=== PATIENT | male | born 1950 | race Caucasian/White ===

== ENCOUNTER 2020-04-26 13:13 | Inpatient (IN) | payer OTHER, SELFPAY ==
[~2020-04-26] VITALS: Ht 162.6 cm; Wt 78.5 kg
[2020-04-26 13:15] VITALS: Ht 162.6 cm; Wt 78.5 kg
[2020-04-26 14:38] LABS: PLATELET COUNT 220 x10^3mcL (130-400); RED CELL DISTRIBUTION WIDTH 13.8 % (11.5-14.5)
[2020-04-26 14:47] LABS: CALCIUM 8.7 mg/dL (8.5-10.1); CARBON DIOXIDE 21.3 mmol/L (21-32); CHLORIDE SERUM 101 mmol/L (98-107); CREATININE SERUM 1.1 mg/dL (0.7-1.3); GFR1 > 60 mL/min; GLUCOSE SERUM 199 mg/dL (74-106); POTASSIUM SERUM 3.7 mmol/L (3.5-5.1); SODIUM SERUM 134 mmol/L (136-145)
[2020-04-26 14:48] LABS: BASOPHIL % 0 % (0-2)
[2020-04-26 14:51] LABS: ALKALINE PHOSPHATASE 84 U/L (46-116); ALT/SGPT 74 U/L (16-63); AST/SGOT 81 U/L (15-37); BILIRUBIN TOTAL 0.52 mg/dL (0.20-1.00); LACTIC DEHYDROGENASE (LDH) 562 U/L (100-190); TOTAL PROTEIN, SERUM 7.5 g/dL (6.4-8.2)
[2020-04-26 15:00] LABS: ALBUMIN 2.8 g/dL (3.4-5.0)
[2020-04-26 15:23] LABS: C REACTIVE PROTEIN 18.4 mg/dL (<=0.9)
[2020-04-26 23:36] VITALS: BP 124/71
[2020-04-27 06:21] VITALS: BP 120/72
[2020-04-27 07:42] LABS: ALKALINE PHOSPHATASE 81 U/L (46-116); ALT/SGPT 69 U/L (16-63); AST/SGOT 70 U/L (15-37); BILIRUBIN TOTAL 0.5 mg/dL (0.20-1.00); CALCIUM 8.8 mg/dL (8.5-10.1); CARBON DIOXIDE 23.1 mmol/L (21-32); CHLORIDE SERUM 102 mmol/L (98-107); CREATININE SERUM 0.8 mg/dL (0.7-1.3); GFR1 > 60 mL/min; GLUCOSE SERUM 158 mg/dL (74-106); MAGNESIUM 2.4 mg/dL (1.8-2.4); SODIUM SERUM 136 mmol/L (136-145); TOTAL PROTEIN, SERUM 7.3 g/dL (6.4-8.2)
[2020-04-27 07:58] LABS: BASOPHIL % 0.1 % (0-2); PLATELET COUNT 253 x10^3mcL (130-400); RED CELL DISTRIBUTION WIDTH 14.1 % (11.5-14.5)
[2020-04-27 09:00] LABS: ALBUMIN 2.7 g/dL (3.4-5.0)
[2020-04-27 09:02] VITALS: BP 124/63
[2020-04-27 12:35] LABS: BILIRUBIN DIRECT 0.22 mg/dL (0.0-0.2); BILIRUBIN TOTAL 0.4 mg/dL (0.20-1.00); TOTAL PROTEIN, SERUM 7.6 g/dL (6.4-8.2)
[2020-04-27 12:40] LABS: ALBUMIN 2.8 g/dL (3.4-5.0)
[2020-04-27 13:37] VITALS: BP 121/69
[2020-04-27 17:27] VITALS: BP 117/69
[2020-04-27 22:03] VITALS: BP 134/75
[2020-04-28 05:50] VITALS: BP 122/69
[2020-04-28 07:06] VITALS: BP 136/88
[2020-04-28 07:48] LABS: ALKALINE PHOSPHATASE 93 U/L (46-116); ALT/SGPT 81 U/L (16-63); AST/SGOT 88 U/L (15-37); BILIRUBIN TOTAL 0.5 mg/dL (0.20-1.00); CALCIUM 9.1 mg/dL (8.5-10.1); CARBON DIOXIDE 22.6 mmol/L (21-32); CHLORIDE SERUM 104 mmol/L (98-107); CREATININE SERUM 0.9 mg/dL (0.7-1.3); GFR1 > 60 mL/min; GLUCOSE SERUM 135 mg/dL (74-106); MAGNESIUM 2.5 mg/dL (1.8-2.4); POTASSIUM SERUM 3.9 mmol/L (3.5-5.1); SODIUM SERUM 138 mmol/L (136-145); TOTAL PROTEIN, SERUM 7.3 g/dL (6.4-8.2)
[2020-04-28 07:54] LABS: ALBUMIN 2.7 g/dL (3.4-5.0)
[2020-04-28 08:26] LABS: BILIRUBIN DIRECT 0.22 mg/dL (0.0-0.2); BILIRUBIN TOTAL 0.53 mg/dL (0.20-1.00); TOTAL PROTEIN, SERUM 7.5 g/dL (6.4-8.2)
[2020-04-28 08:42] LABS: PLATELET COUNT 318 x10^3mcL (130-400); RED CELL DISTRIBUTION WIDTH 14.1 % (11.5-14.5)
[2020-04-28 08:46] LABS: BASOPHIL % 0 % (0-2)
[2020-04-28 09:05] LABS: ALBUMIN 2.6 g/dL (3.4-5.0)
[2020-04-28 09:12] VITALS: BP 121/68
[2020-04-28 12:29] VITALS: BP 126/68
[2020-04-28 17:27] VITALS: BP 121/62
[2020-04-28 21:21] VITALS: BP 104/54
[2020-04-29 05:49] VITALS: BP 113/71
[2020-04-29 07:41] LABS: PLATELET COUNT 324 x10^3mcL (130-400)
[2020-04-29 07:48] LABS: BASOPHIL % 0 % (0-2)
[2020-04-29 08:00] LABS: ALKALINE PHOSPHATASE 142 U/L (46-116); ALT/SGPT 70 U/L (16-63); AST/SGOT 68 U/L (15-37); BILIRUBIN TOTAL 0.7 mg/dL (0.20-1.00); CARBON DIOXIDE 24.3 mmol/L (21-32); CHLORIDE SERUM 104 mmol/L (98-107); CREATININE SERUM 0.9 mg/dL (0.7-1.3); GFR1 > 60 mL/min; GLUCOSE SERUM 131 mg/dL (74-106); MAGNESIUM 2.4 mg/dL (1.8-2.4); SODIUM SERUM 139 mmol/L (136-145); TOTAL PROTEIN, SERUM 7.3 g/dL (6.4-8.2)
[2020-04-29 08:01] LABS: ALBUMIN 2.7 g/dL (3.4-5.0)
[2020-04-29 08:51] VITALS: BP 123/68
[2020-04-29 12:37] VITALS: BP 111/69
[2020-04-29 17:11] VITALS: BP 107/22
[2020-04-29 20:18] VITALS: BP 107/58
[2020-04-30 04:45] VITALS: BP 107/57
[2020-04-30 07:55] LABS: BASOPHIL % 0.1 % (0-2); PLATELET COUNT 354 x10^3mcL (130-400); RED CELL DISTRIBUTION WIDTH 14.2 % (11.5-14.5)
[2020-04-30 08:23] LABS: ALBUMIN 2.7 g/dL (3.4-5.0); ALKALINE PHOSPHATASE 110 U/L (46-116); ALT/SGPT 58 U/L (16-63); AST/SGOT 55 U/L (15-37); BILIRUBIN TOTAL 0.8 mg/dL (0.20-1.00); CALCIUM 8.9 mg/dL (8.5-10.1); CARBON DIOXIDE 25.4 mmol/L (21-32); CHLORIDE SERUM 101 mmol/L (98-107); CREATININE SERUM 0.9 mg/dL (0.7-1.3); GFR1 > 60 mL/min; GLUCOSE SERUM 101 mg/dL (74-106); MAGNESIUM 2.5 mg/dL (1.8-2.4); POTASSIUM SERUM 4.3 mmol/L (3.5-5.1); SODIUM SERUM 139 mmol/L (136-145); TOTAL PROTEIN, SERUM 7.2 g/dL (6.4-8.2)
[2020-04-30 08:47] VITALS: BP 136/64
[2020-04-30 13:12] VITALS: BP 112/68
[2020-04-30 16:48] VITALS: BP 133/71
[2020-04-30 21:10] VITALS: BP 101/72
[2020-05-01 05:40] VITALS: BP 129/75
[2020-05-01 07:50] LABS: BASOPHIL % 0.1 % (0-2); RED CELL DISTRIBUTION WIDTH 13.6 % (11.5-14.5)
[2020-05-01 08:05] VITALS: BP 121/70
[2020-05-01 08:25] LABS: PLATELET COUNT 421 x10^3mcL (130-400)
[2020-05-01 08:27] LABS: ALKALINE PHOSPHATASE 119 U/L (46-116); ALT/SGPT 52 U/L (16-63); AST/SGOT 46 U/L (15-37); BILIRUBIN TOTAL 1.11 mg/dL (0.20-1.00); CALCIUM 9.2 mg/dL (8.5-10.1); CARBON DIOXIDE 27.3 mmol/L (21-32); CHLORIDE SERUM 102 mmol/L (98-107); GFR1 > 60 mL/min; GLUCOSE SERUM 118 mg/dL (74-106); MAGNESIUM 2.6 mg/dL (1.8-2.4); POTASSIUM SERUM 4.8 mmol/L (3.5-5.1); SODIUM SERUM 138 mmol/L (136-145); TOTAL PROTEIN, SERUM 7.4 g/dL (6.4-8.2)
[2020-05-01 08:32] LABS: ALBUMIN 2.6 g/dL (3.4-5.0)
[2020-05-01 12:26] VITALS: BP 126/57
[2020-05-01 16:42] VITALS: BP 108/58
[2020-05-01 21:05] VITALS: BP 113/53
[2020-05-02 06:21] VITALS: BP 130/82
[2020-05-02 08:32] VITALS: BP 117/68
[2020-05-02 08:55] LABS: RED CELL DISTRIBUTION WIDTH 14.3 % (12.1-16.2)
[2020-05-02 08:59] LABS: BASOPHIL % 0.3 % (0.2-1.5)
[2020-05-02 09:22] LABS: ALKALINE PHOSPHATASE 125 U/L (46-116); ALT/SGPT 47 U/L (16-63); AST/SGOT 51 U/L (15-37); BILIRUBIN TOTAL 1.04 mg/dL (0.20-1.00); CALCIUM 9.2 mg/dL (8.5-10.1); CARBON DIOXIDE 24.9 mmol/L (21-32); CHLORIDE SERUM 101 mmol/L (98-107); GFR1 > 60 mL/min; GLUCOSE SERUM 114 mg/dL (74-106); MAGNESIUM 2.6 mg/dL (1.8-2.4); POTASSIUM SERUM 4.4 mmol/L (3.5-5.1); SODIUM SERUM 137 mmol/L (136-145); TOTAL PROTEIN, SERUM 7.4 g/dL (6.4-8.2)
[2020-05-02 09:24] LABS: ALBUMIN 2.5 g/dL (3.4-5.0)
[2020-05-02 09:46] LABS: PLATELET COUNT 446 x10^3mcL (152-348)
[2020-05-02 12:37] VITALS: BP 100/55
[2020-05-02 17:23] VITALS: BP 108/48
[2020-05-02 22:08] VITALS: BP 105/51
[2020-05-03 06:27] VITALS: BP 105/60
[2020-05-03 08:02] LABS: BASOPHIL % 0.1 % (0.2-1.5); RED CELL DISTRIBUTION WIDTH 14.3 % (12.1-16.2)
[2020-05-03 08:28] LABS: ALKALINE PHOSPHATASE 116 U/L (46-116); ALT/SGPT 41 U/L (16-63); AST/SGOT 39 U/L (15-37); BILIRUBIN TOTAL 0.75 mg/dL (0.20-1.00); CALCIUM 8.8 mg/dL (8.5-10.1); CARBON DIOXIDE 26.3 mmol/L (21-32); CHLORIDE SERUM 103 mmol/L (98-107); GFR1 > 60 mL/min; GLUCOSE SERUM 115 mg/dL (74-106); MAGNESIUM 2.9 mg/dL (1.8-2.4); POTASSIUM SERUM 4.9 mmol/L (3.5-5.1); SODIUM SERUM 138 mmol/L (136-145); TOTAL PROTEIN, SERUM 7.1 g/dL (6.4-8.2)
[2020-05-03 08:59] LABS: ALBUMIN 2.3 g/dL (3.4-5.0)
[2020-05-03 09:01] VITALS: BP 116/70
[2020-05-03 09:02] LABS: PLATELET COUNT 449 x10^3mcL (152-348)
[2020-05-03 12:30] VITALS: BP 104/74
[2020-05-03 17:07] VITALS: BP 105/56
[2020-05-03 21:42] VITALS: BP 108/71
[2020-05-04 06:04] VITALS: BP 113/67
[2020-05-04 07:30] LABS: RED CELL DISTRIBUTION WIDTH 14.4 % (12.1-16.2)
[2020-05-04 08:31] LABS: PLATELET COUNT 461 x10^3mcL (152-348)
[2020-05-04 08:52] VITALS: BP 118/68
[2020-05-04 09:30] LABS: ALKALINE PHOSPHATASE 115 U/L (46-116); ALT/SGPT 38 U/L (16-63); AST/SGOT 43 U/L (15-37); BILIRUBIN TOTAL 0.62 mg/dL (0.20-1.00); CARBON DIOXIDE 23.4 mmol/L (21-32); CHLORIDE SERUM 103 mmol/L (98-107); GFR1 > 60 mL/min; GLUCOSE SERUM 100 mg/dL (74-106); MAGNESIUM 2.8 mg/dL (1.8-2.4); POTASSIUM SERUM 4.8 mmol/L (3.5-5.1); SODIUM SERUM 139 mmol/L (136-145); TOTAL PROTEIN, SERUM 7.4 g/dL (6.4-8.2)
[2020-05-04 09:47] LABS: ALBUMIN 2.3 g/dL (3.4-5.0)
[2020-05-04 12:33] VITALS: BP 108/48
[2020-05-04 16:32] VITALS: BP 120/69
[2020-05-04 17:35] LABS: ATYPICAL LYMPH 2 %; BAND NEUTROPHIL 2 % (0-10); BASOPHIL 1 % (0-2); MONOCYTE 3 % (0-7); SEGMENTED NEUTROPHILS 85 % (37-75)
[2020-05-04 17:36] LABS: PLATELET MORPHOLOGY LARGE PLATELET SEEN; rbc morphology (normal/abnorm) NORMAL (NORMAL)
[2020-05-04 23:41] VITALS: BP 103/57
[2020-05-05 05:48] VITALS: BP 110/70
[2020-05-05 08:04] LABS: BASOPHIL % 0.4 % (0.2-1.5)
[2020-05-05 08:48] LABS: PLATELET COUNT 468 x10^3mcL (152-348); RED CELL DISTRIBUTION WIDTH 14.6 % (12.1-16.2)
[2020-05-05 08:53] VITALS: BP 120/69
[2020-05-05 09:21] LABS: ALKALINE PHOSPHATASE 113 U/L (46-116); ALT/SGPT 33 U/L (16-63); AST/SGOT 47 U/L (15-37); BILIRUBIN TOTAL 0.7 mg/dL (0.20-1.00); CALCIUM 8.6 mg/dL (8.5-10.1); CHLORIDE SERUM 102 mmol/L (98-107); CREATININE SERUM 0.9 mg/dL (0.7-1.3); GFR1 > 60 mL/min; GLUCOSE SERUM 99 mg/dL (74-106); MAGNESIUM 2.5 mg/dL (1.8-2.4); POTASSIUM SERUM 4.5 mmol/L (3.5-5.1); SODIUM SERUM 136 mmol/L (136-145); TOTAL PROTEIN, SERUM 7.2 g/dL (6.4-8.2)
[2020-05-05 09:23] LABS: ALBUMIN 2.2 g/dL (3.4-5.0)
[2020-05-05 12:00] VITALS: BP 102/99
[2020-05-05 16:39] VITALS: BP 117/73
[2020-05-05 21:15] VITALS: BP 120/71
[2020-05-06 05:34] VITALS: BP 102/55
[2020-05-06 08:01] LABS: BASOPHIL % 0.2 % (0.2-1.5); RED CELL DISTRIBUTION WIDTH 14.3 % (12.1-16.2)
[2020-05-06 08:41] LABS: PLATELET COUNT 437 x10^3mcL (152-348)
[2020-05-06 09:03] LABS: ALKALINE PHOSPHATASE 109 U/L (46-116); ALT/SGPT 35 U/L (16-63); AST/SGOT 47 U/L (15-37); BILIRUBIN TOTAL 0.6 mg/dL (0.20-1.00); CALCIUM 8.8 mg/dL (8.5-10.1); CARBON DIOXIDE 26.6 mmol/L (21-32); CHLORIDE SERUM 101 mmol/L (98-107); GFR1 > 60 mL/min; GLUCOSE SERUM 104 mg/dL (74-106); MAGNESIUM 2.7 mg/dL (1.8-2.4); POTASSIUM SERUM 5.1 mmol/L (3.5-5.1); SODIUM SERUM 137 mmol/L (136-145); TOTAL PROTEIN, SERUM 7.2 g/dL (6.4-8.2)
[2020-05-06 09:05] VITALS: BP 110/70
[2020-05-06 09:19] LABS: ALBUMIN 2.2 g/dL (3.4-5.0)
[2020-05-06 14:40] VITALS: BP 118/60
[2020-05-06 21:52] VITALS: BP 103/55
[2020-05-07 05:13] VITALS: BP 113/69
[2020-05-07 07:41] LABS: BASOPHIL % 0.2 % (0.2-1.5)
[2020-05-07 08:09] LABS: ALKALINE PHOSPHATASE 107 U/L (46-116); ALT/SGPT 47 U/L (16-63); AST/SGOT 63 U/L (15-37); BILIRUBIN TOTAL 0.6 mg/dL (0.20-1.00); CALCIUM 8.5 mg/dL (8.5-10.1); CARBON DIOXIDE 25.1 mmol/L (21-32); CHLORIDE SERUM 101 mmol/L (98-107); CREATININE SERUM 0.8 mg/dL (0.7-1.3); GFR1 > 60 mL/min; GLUCOSE SERUM 95 mg/dL (74-106); POTASSIUM SERUM 4.5 mmol/L (3.5-5.1); SODIUM SERUM 137 mmol/L (136-145); TOTAL PROTEIN, SERUM 7.1 g/dL (6.4-8.2)
[2020-05-07 08:17] LABS: ALBUMIN 2.2 g/dL (3.4-5.0)
[2020-05-07 09:08] VITALS: BP 111/77
[2020-05-07 09:18] LABS: PLATELET COUNT 420 x10^3mcL (152-348); RED CELL DISTRIBUTION WIDTH 14.8 % (12.1-16.2)
[2020-05-07 11:47] VITALS: BP 113/69
[2020-05-07 15:32] VITALS: BP 120/71
[2020-05-07 20:56] VITALS: BP 117/72
[2020-05-08 06:02] VITALS: BP 106/54
[2020-05-08 08:32] VITALS: BP 106/63
[2020-05-08 08:37] LABS: BASOPHIL % 0.7 % (0.2-1.5)
[2020-05-08 08:54] LABS: PLATELET COUNT 417 x10^3mcL (152-348); RED CELL DISTRIBUTION WIDTH 14.7 % (12.1-16.2)
[2020-05-08 11:05] LABS: ALKALINE PHOSPHATASE 107 U/L (46-116); ALT/SGPT 98 U/L (16-63); AST/SGOT 109 U/L (15-37); BILIRUBIN TOTAL 0.65 mg/dL (0.20-1.00); CALCIUM 9.1 mg/dL (8.5-10.1); CARBON DIOXIDE 22.5 mmol/L (21-32); CHLORIDE SERUM 102 mmol/L (98-107); CREATININE SERUM 0.9 mg/dL (0.7-1.3); GFR1 > 60 mL/min; GLUCOSE SERUM 88 mg/dL (74-106); POTASSIUM SERUM 4.6 mmol/L (3.5-5.1); SODIUM SERUM 137 mmol/L (136-145); TOTAL PROTEIN, SERUM 7.6 g/dL (6.4-8.2)
[2020-05-08 11:08] LABS: ALBUMIN 2.2 g/dL (3.4-5.0)
[2020-05-08 15:58] VITALS: BP 115/78
[2020-05-08 20:30] VITALS: BP 125/75
[2020-05-09 04:40] VITALS: BP 113/72
[2020-05-09 08:56] LABS: ALKALINE PHOSPHATASE 107 U/L (46-116); ALT/SGPT 134 U/L (16-63); AST/SGOT 106 U/L (15-37); BILIRUBIN TOTAL 0.7 mg/dL (0.20-1.00); CALCIUM 8.6 mg/dL (8.5-10.1); CARBON DIOXIDE 25.4 mmol/L (21-32); CHLORIDE SERUM 99 mmol/L (98-107); CREATININE SERUM 0.9 mg/dL (0.7-1.3); GFR1 > 60 mL/min; GLUCOSE SERUM 96 mg/dL (74-106); POTASSIUM SERUM 4.3 mmol/L (3.5-5.1); SODIUM SERUM 135 mmol/L (136-145); TOTAL PROTEIN, SERUM 7.4 g/dL (6.4-8.2)
[2020-05-09 08:59] LABS: ALBUMIN 2.3 g/dL (3.4-5.0)
[2020-05-09 09:00] VITALS: BP 110/74
[2020-05-09 09:30] LABS: PLATELET COUNT 460 x10^3mcL (152-348); RED CELL DISTRIBUTION WIDTH 14.7 % (12.1-16.2)
[2020-05-09 12:07] LABS: BAND NEUTROPHIL 3 % (0-10); MONOCYTE 4 % (0-7); SEGMENTED NEUTROPHILS 76 % (37-75)
[2020-05-09 12:09] LABS: rbc morphology (normal/abnorm) NORMAL (NORMAL)
[2020-05-09 12:13] VITALS: BP 112/73
[2020-05-09 17:58] VITALS: BP 117/76
[2020-05-09 21:45] VITALS: BP 114/75
[2020-05-10 05:35] VITALS: BP 126/72
[2020-05-10 08:37] VITALS: BP 107/67
[2020-05-10 11:11] VITALS: BP 115/70
[2020-05-10 15:35] LABS: BASOPHIL % 0.7 % (0.2-1.5); PLATELET COUNT 364 x10^3mcL (152-348)
[2020-05-10 15:36] LABS: RED CELL DISTRIBUTION WIDTH 14.6 % (12.1-16.2)
[2020-05-10 15:54] LABS: ALKALINE PHOSPHATASE 105 U/L (46-116); ALT/SGPT 186 U/L (16-63); AST/SGOT 109 U/L (15-37); BILIRUBIN TOTAL 0.6 mg/dL (0.20-1.00); CALCIUM 8.6 mg/dL (8.5-10.1); CARBON DIOXIDE 24.5 mmol/L (21-32); CHLORIDE SERUM 101 mmol/L (98-107); CREATININE SERUM 0.8 mg/dL (0.7-1.3); GFR1 > 60 mL/min; GLUCOSE SERUM 162 mg/dL (74-106); POTASSIUM SERUM 4.8 mmol/L (3.5-5.1); SODIUM SERUM 133 mmol/L (136-145); TOTAL PROTEIN, SERUM 7.1 g/dL (6.4-8.2)
[2020-05-10 16:08] LABS: ALBUMIN 2.3 g/dL (3.4-5.0)
[2020-05-10 17:00] VITALS: BP 130/70
[2020-05-10 21:15] VITALS: BP 119/77
[2020-05-11 05:33] VITALS: BP 96/60
[2020-05-11 07:36] LABS: ALKALINE PHOSPHATASE 104 U/L (46-116); ALT/SGPT 214 U/L (16-63); AST/SGOT 115 U/L (15-37); BILIRUBIN TOTAL 0.6 mg/dL (0.20-1.00); CALCIUM 8.5 mg/dL (8.5-10.1); CHLORIDE SERUM 100 mmol/L (98-107); CREATININE SERUM 0.8 mg/dL (0.7-1.3); GFR1 > 60 mL/min; GLUCOSE SERUM 90 mg/dL (74-106); POTASSIUM SERUM 4.2 mmol/L (3.5-5.1); SODIUM SERUM 135 mmol/L (136-145); TOTAL PROTEIN, SERUM 7.1 g/dL (6.4-8.2)
[2020-05-11 07:46] LABS: ALBUMIN 2.3 g/dL (3.4-5.0)
[2020-05-11 09:49] VITALS: BP 137/60
[2020-05-11 12:45] VITALS: BP 104/64
[2020-05-11 14:17] LABS: RED CELL DISTRIBUTION WIDTH 15.2 % (12.1-16.2)
[2020-05-11 16:36] LABS: MONOCYTE 1.1 % (0-7); SEGMENTED NEUTROPHILS 95.4 % (37-75); rbc morphology (normal/abnorm) NORMAL (NORMAL)
[2020-05-11 16:37] LABS: PLATELET COUNT 533 x10^3mcL (152-348)
[2020-05-11 16:57] VITALS: BP 106/68
[2020-05-11 17:58] VITALS: BP 106/68
[2020-05-11 21:15] VITALS: BP 111/65
[2020-05-12 04:40] LABS: ALKALINE PHOSPHATASE 107 U/L (46-116); ALT/SGPT 227 U/L (16-63); AST/SGOT 102 U/L (15-37); BILIRUBIN TOTAL 0.77 mg/dL (0.20-1.00); CALCIUM 8.9 mg/dL (8.5-10.1); CARBON DIOXIDE 26.2 mmol/L (21-32); CHLORIDE SERUM 101 mmol/L (98-107); CREATININE SERUM 0.9 mg/dL (0.7-1.3); GFR1 > 60 mL/min; GLUCOSE SERUM 106 mg/dL (74-106); POTASSIUM SERUM 4.4 mmol/L (3.5-5.1); SODIUM SERUM 136 mmol/L (136-145); TOTAL PROTEIN, SERUM 7.1 g/dL (6.4-8.2)
[2020-05-12 04:43] LABS: ALBUMIN 2.3 g/dL (3.4-5.0)
[2020-05-12 05:10] VITALS: BP 112/73
[2020-05-12 08:35] VITALS: BP 128/68
[2020-05-12 12:10] VITALS: BP 114/70
[2020-05-12 13:51] LABS: BASOPHIL % 0.6 % (0.2-1.5); PLATELET COUNT 319 x10^3mcL (152-348)
[2020-05-12 14:11] LABS: RED CELL DISTRIBUTION WIDTH 14.7 % (12.1-16.2)
[2020-05-12 16:34] VITALS: BP 133/85
[2020-05-12 23:19] VITALS: BP 120/69
[2020-05-13 06:24] VITALS: BP 109/70
[2020-05-13 07:28] LABS: BASOPHIL % 0.3 % (0.2-1.5); PLATELET COUNT 310 x10^3mcL (152-348)
[2020-05-13 08:11] LABS: ALKALINE PHOSPHATASE 104 U/L (46-116); ALT/SGPT 170 U/L (16-63); AST/SGOT 71 U/L (15-37); BILIRUBIN TOTAL 0.9 mg/dL (0.20-1.00); CALCIUM 8.7 mg/dL (8.5-10.1); CARBON DIOXIDE 25.8 mmol/L (21-32); CHLORIDE SERUM 99 mmol/L (98-107); CREATININE SERUM 0.8 mg/dL (0.7-1.3); GFR1 > 60 mL/min; GLUCOSE SERUM 101 mg/dL (74-106); POTASSIUM SERUM 4.5 mmol/L (3.5-5.1); SODIUM SERUM 135 mmol/L (136-145); TOTAL PROTEIN, SERUM 6.7 g/dL (6.4-8.2)
[2020-05-13 08:16] LABS: ALBUMIN 2.2 g/dL (3.4-5.0)
[2020-05-13 08:17] VITALS: BP 110/66
[2020-05-13 08:42] LABS: RED CELL DISTRIBUTION WIDTH 14.7 % (12.1-16.2)
[2020-05-13 13:12] VITALS: BP 136/75
[2020-05-13 16:29] VITALS: BP 109/64
[2020-05-13 21:03] VITALS: BP 129/64
[2020-05-14 05:25] VITALS: BP 125/73
[2020-05-14 08:02] LABS: BASOPHIL % 0.3 % (0.2-1.5); PLATELET COUNT 289 x10^3mcL (152-348)
[2020-05-14 08:21] LABS: ALKALINE PHOSPHATASE 119 U/L (46-116); ALT/SGPT 148 U/L (16-63); AST/SGOT 63 U/L (15-37); CALCIUM 9.2 mg/dL (8.5-10.1); CARBON DIOXIDE 26.5 mmol/L (21-32); CHLORIDE SERUM 100 mmol/L (98-107); CREATININE SERUM 0.9 mg/dL (0.7-1.3); GFR1 > 60 mL/min; GLUCOSE SERUM 113 mg/dL (74-106); POTASSIUM SERUM 5.5 mmol/L (3.5-5.1); SODIUM SERUM 136 mmol/L (136-145); TOTAL PROTEIN, SERUM 7.2 g/dL (6.4-8.2)
[2020-05-14 08:35] LABS: ALBUMIN 2.2 g/dL (3.4-5.0)
[2020-05-14 08:49] LABS: RED CELL DISTRIBUTION WIDTH 14.8 % (12.1-16.2)
[2020-05-14 09:03] VITALS: BP 142/76
[2020-05-14 11:48] VITALS: BP 122/77
[2020-05-14 16:37] VITALS: BP 110/68
[2020-05-14 19:56] VITALS: BP 129/78
[2020-05-15 05:51] VITALS: BP 144/90
[2020-05-15 09:13] VITALS: BP 119/79
[2020-05-15 10:08] LABS: BASOPHIL % 0.8 % (0.2-1.5); PLATELET COUNT 230 x10^3mcL (152-348)
[2020-05-15 10:11] LABS: CALCIUM 9.2 mg/dL (8.5-10.1); CARBON DIOXIDE 24.2 mmol/L (21-32); CHLORIDE SERUM 97 mmol/L (98-107); CREATININE SERUM 1.1 mg/dL (0.7-1.3); GFR1 > 60 mL/min; GLUCOSE SERUM 142 mg/dL (74-106); MAGNESIUM 2.5 mg/dL (1.8-2.4); POTASSIUM SERUM 4.5 mmol/L (3.5-5.1); SODIUM SERUM 135 mmol/L (136-145)
[2020-05-15 10:21] LABS: RED CELL DISTRIBUTION WIDTH 15.3 % (12.1-16.2)
[2020-05-15 17:00] VITALS: BP 129/79
[2020-05-15 20:46] VITALS: BP 124/70
[2020-05-16 05:53] VITALS: BP 127/80
[2020-05-16 11:55] VITALS: BP 117/72
[2020-05-16 17:20] VITALS: BP 128/76
[2020-05-16 21:25] VITALS: BP 105/59; BP 154/90
[2020-05-17 05:50] VITALS: BP 111/69
[2020-05-17 09:40] VITALS: BP 129/80
[2020-05-17 13:34] VITALS: BP 137/62
[2020-05-17 17:35] VITALS: BP 130/61
[2020-05-17 23:00] VITALS: BP 148/77
[2020-05-18 09:00] VITALS: BP 136/75
[2020-05-18 14:34] LABS: PLATELET COUNT 134 x10^3mcL (152-348)
[2020-05-18 14:38] LABS: RED CELL DISTRIBUTION WIDTH 16.8 % (12.1-16.2)
[2020-05-18 14:54] LABS: BILIRUBIN TOTAL 0.9 mg/dL (0.20-1.00); CALCIUM 10.5 mg/dL (8.5-10.1); CARBON DIOXIDE 21.7 mmol/L (21-32); CREATININE SERUM 2.6 mg/dL (0.7-1.3)
[2020-05-18 14:59] LABS: ALBUMIN 1.8 g/dL (3.4-5.0); TOTAL PROTEIN, SERUM 5.7 g/dL (6.4-8.2)
[2020-05-18 15:17] LABS: MONOCYTE 2 % (0-7); SEGMENTED NEUTROPHILS 83 % (37-75)
[2020-05-18 15:18] LABS: BAND NEUTROPHIL 9 % (0-10); BASOPHIL 0 % (0-2)
[2020-05-18 15:19] LABS: PLATELET MORPHOLOGY PLATELETS DECREASED; rbc morphology (normal/abnorm) NORMAL (NORMAL)
[2020-05-18 15:24] VITALS: BP 142/118
[2020-05-18 16:43] LABS: POTASSIUM SERUM 6.2 mmol/L (3.5-5.1)
[2020-05-18 17:00] VITALS: BP 146/61
== END 2020-05-18 18:50 | DRG 208 ==
LOC: ED 13:13 → DU 15:32 → MU 05-01 21:25 → DU 05-01 21:31
PROVIDERS: Emergency Medicine; Hospitalist; Internal Medicine Pulmonary Disease; ADMIT Hospitalist; ATTEND Hospitalist
PROC: XW033E5 Introduction of Remdesivir Anti-infective into Peripheral Vein, Percutaneous Approach, New Technology Group 5 (ICD-10-PCS; 2020-04-27)
PROC: XW13325 Transfusion of Convalescent Plasma (Nonautologous) into Peripheral Vein, Percutaneous Approach, New Technology Group 5 (ICD-10-PCS; 2020-05-01)
PROC: 5A0945A Assistance with Respiratory Ventilation, 24-96 Consecutive Hours, High Flow/Velocity Cannula (ICD-10-PCS; 2020-05-04)
PROC: 5A0935A Assistance with Respiratory Ventilation, Less than 24 Consecutive Hours, High Flow/Velocity Cannula (ICD-10-PCS; 2020-05-08)
PROC: 5A0945A Assistance with Respiratory Ventilation, 24-96 Consecutive Hours, High Flow/Velocity Cannula (ICD-10-PCS; 2020-05-11)
PROC: 5A1935Z Respiratory Ventilation, Less than 24 Consecutive Hours (ICD-10-PCS; principal; 2020-05-18)
PROC: 0BH17EZ Insertion of Endotracheal Airway into Trachea, Via Natural or Artificial Opening (ICD-10-PCS; 2020-05-18)
PROC: 02HV33Z Insertion of Infusion Device into Superior Vena Cava, Percutaneous Approach (ICD-10-PCS; 2020-05-18)
PROC: 5A12012 Performance of Cardiac Output, Single, Manual (ICD-10-PCS; 2020-05-18)
DX: U07.1 COVID-19 (principal); J96.01 Acute respiratory failure with hypoxia; J12.89 Other viral pneumonia; D68.59 Other primary thrombophilia; E11.9 Type 2 diabetes mellitus without complications; I46.9 Cardiac arrest, cause unspecified
CPT/HCPCS: 36600; 82962; 83880; 85378; 87804; 90658; 90732; C9113; G0378; J0456; J0696; J1100; J1265; J1650; J1815; J2704; J3490; J3535; J7030; J7040; J7050; J7060; U0003